=== PATIENT | male | born 1985 | race African-American/Black ===

== ENCOUNTER 2020-02-03 21:36 | Emergency (ER) | payer OTHER ==
[~2020-02-03] VITALS: Ht 190.5 cm; Wt 117.9 kg
[~2020-02-03 21:36] MED LIST: IBUPROFEN 200200 M1 PO; IBUPROFEN 600600 M1 PO; NORCO 5-325 TA1 EACH PO; PENICILLIN VK500 M1 PO; PENICILLIN VK500 MG PO
[2020-02-03 22:22] VITALS: BP 130/79
== END 2020-02-03 22:17 | disposition home or self-care (01) ==
LOC: ER 21:36
DX: B30.9 Viral conjunctivitis, unspecified (principal)

== ENCOUNTER 2020-04-12 12:11 | Emergency (ER) | payer OTHER ==
[~2020-04-12] VITALS: Ht 190.5 cm; Wt 118.8 kg
[2020-04-12 13:13] LABS: ABSOLUTE NEUTROPHILS 3.1 thou/uL (1.4-8.2); BASOPHILS 1.1 % (0.0-2.0); EOSINOPHILS 2.4 % (0.0-3.0); HEMATOCRIT 41.4 % (42.0-52.0); HEMOGLOBIN 14.4 gm/dL (14.0-18.0); LYMPHOCYTES 37.7 % (24.0-44.0); MCHC 34.9 g/dL (28.0-37.0); MCV 91.6 fL (80.0-100.0); MONOCYTES 6.6 % (1.0-8.0); PLATELET COUNT 244 thou/uL (150-400); POLYS 52.2 % (36.0-66.0); RBC 4.52 mil/uL (4.50-6.00); RDW 12.8 % (10.5-14.5); WBC 5.9 thou/uL (4.0-11.0)
[2020-04-12 13:17] LABS: CALCIUM 8.5 mg/dL (8.5-10.1); CREATININE 1.2 mg/dL (0.7-1.3); POTASSIUM 3.8 mmol/L (3.5-5.1)
[2020-04-12 13:23] LABS: ALBUMIN 3.7 g/dL (3.4-5.0); TOTAL BILIRUBIN 0.6 mg/dL (0.2-1.0); TOTAL PROTEIN 7.2 g/dL (6.4-8.2)
[2020-04-12 14:24] LABS: URINE BILIRUBIN NEGATIVE (Negative); URINE BLOOD NEGATIVE (Negative); URINE CLARITY CLEAR; URINE COLOR YELLOW; URINE GLUCOSE-RANDOM* NEGATIVE (Negative); URINE KETONES NEGATIVE (Negative); URINE LEUKOCYTES-REFLEX NEGATIVE (Negative); URINE NITRITE-REFLEX NEGATIVE (Negative); URINE PROTEIN (DIPSTICK) TRACE (Negative); URINE SPECIFIC GRAVITY >= 1.030 (1.005-1.035)
[2020-04-12] MEDS ORDERED: ONDANSETRON HCL4 M2 PO (14:38)
[2020-04-12] MEDS ORDERED: PROMETH-CODEIN 65 ML PO (14:39)
[2020-04-12 14:53] VITALS: BP 133/77
== END 2020-04-12 14:53 | disposition home or self-care (01) ==
LOC: ER 12:11
PROVIDERS: Physician Assistant
DX: R19.7 Diarrhea, unspecified (principal); M79.10 Myalgia, unspecified site; F17.210 Nicotine dependence, cigarettes, uncomplicated; Z20.828 Contact with and (suspected) exposure to other viral communicable diseases

== ENCOUNTER 2020-05-12 02:16 | Emergency (ER) | payer BC ==
[~2020-05-12] VITALS: Ht 182.9 cm; Wt 119.3 kg
[~2020-05-12 02:16] MED LIST changes: +ONDANSETRON HCL4 M2 PO; +PROMETH-CODEIN 65 ML PO
[2020-05-12] MEDS ORDERED: PROAIR HFA8.5 GM INH (02:24)
[2020-05-12 03:04] LABS: HEMATOCRIT 39.8 % (42.0-52.0); HEMOGLOBIN 13.7 gm/dL (14.0-18.0); MCH 31.7 pg (26.0-34.0); MCHC 34.6 g/dL (28.0-37.0); MCV 91.6 fL (80.0-100.0); PLATELET COUNT 226 thou/uL (150-400); RBC 4.34 mil/uL (4.50-6.00); RDW 12.6 % (10.5-14.5); WBC 5.7 thou/uL (4.0-11.0)
[2020-05-12 03:14] LABS: ANION GAP 11 mmol/L (7-16); BUN 9 mg/dL (7-18); CALCIUM 8.8 mg/dL (8.5-10.1); CHLORIDE 102 mmol/L (98-107); CO2 25 mmol/L (21-32); CREATININE 1.1 mg/dL (0.7-1.3); GLUCOSE 96 mg/dL (74-106); POTASSIUM 3.5 mmol/L (3.5-5.1); SODIUM 138 mmol/L (136-145)
[2020-05-12 03:25] LABS: ALBUMIN 3.9 g/dL (3.4-5.0); LIPASE 146 U/L (73-393); SGOT 33 U/L (15-37); SGPT 24 U/L (30-65); TOTAL BILIRUBIN 0.4 mg/dL (0.2-1.0); TOTAL PROTEIN 7.6 g/dL (6.4-8.2); TROPONIN-I <0.06 ng/mL (<0.06)
[2020-05-12] MEDS ORDERED: FAMOTIDINE 20 M20 MG PO (04:16)
[2020-05-12 04:27] VITALS: BP 130/94
[2020-05-12 05:35] LABS: ABSOLUTE NEUTROPHILS 2.7 thou/uL (1.4-8.2)
[2020-05-12 05:36] LABS: PLATELET ESTIMATE NORMAL
--- NOTE | 2020-05-12 07:25 | EKG ---
[facility] [place] [address] ELECTROCARDIOGRAM REPORT Name: JONATAN TINOCO Room #: [facility] [id number] Admission: 05/12/20 Attend Phys: Discharge: 05/12/20 Date of : 89 Report #: [id number] THIS REPORT FOR: cc: RACHELE Heard family physician/PCP RACHELE - Orquidea family physician/PCP Sandro Jama MD [facility] THIS REPORT FOR: //name// [facility] ED Test Date: 2020-05-12 Test Time: 02:25:13 Pat Name: JONATAN TINOCO Department: Room: Gender: [employer]: [facility] : 1985 Requested By: Thierry Ulloa Order Number: [id number] MD: Sandro Jama Measurements Intervals [place] Rate: 75 P: 38 RI: 177 QRS: -39 QRSD: 102 T: 27 QT: 396 QTc: 443 Interpretive Statements Sinus rhythm Probable left atrial enlargement Left axis deviation RSR' in V1 or V2, probably normal variant J-Point elev, probable normal early repol pattern No previous ECG available for comparison Electronically Signed On 05-12-2020 7:25:10 CDT by Sandro Jama [email or web address] <ELECTRONICALLY SIGNED> By: Sandro Jama MD, FAC 05/12/20 0725 4 4 Sandro Jama MD, [facility] /EPI
== END 2020-05-12 04:30 | disposition home or self-care (01) ==
LOC: ER 02:16
PROVIDERS: Emergency Medicine
DX: R07.89 Other chest pain (principal); J45.909 Unspecified asthma, uncomplicated; F17.210 Nicotine dependence, cigarettes, uncomplicated; Z79.899 Other long term (current) drug therapy

== ENCOUNTER 2020-08-09 21:10 | Emergency (ER) | payer BC ==
[~2020-08-09] VITALS: Ht 190.5 cm; Wt 123.4 kg
[~2020-08-09 21:10] MED LIST changes: +FAMOTIDINE 20 M20 MG PO; +PROAIR HFA8.5 GM INH
[2020-08-09 21:14] VITALS: BP 116/65
== END 2020-08-09 21:48 | disposition home or self-care (01) ==
LOC: ER 21:10
DX: Z20.828 Contact with and (suspected) exposure to other viral communicable diseases (principal); J45.909 Unspecified asthma, uncomplicated; F17.210 Nicotine dependence, cigarettes, uncomplicated; Z79.899 Other long term (current) drug therapy